=== PATIENT | male | born 1960 | race African-American/Black ===

== ENCOUNTER 2017-01-01 22:32 | Emergency (ER) | payer SELFPAY ==
[~2017-01-01] VITALS: Ht 175.3 cm; Wt 112.0 kg
[2017-01-01] MEDS: ALBUTEROL (0.083%) 2.5MG/3ML NEB HHN SCH ×2 (00:35→23:45)
[~2017-01-01 22:32] MED LIST: ALBU6.7H2
[2017-01-01] MEDS ORDERED: IPRATROPIUM BROMIDE (0.02%) 0.5MG/2.5ML NEB HHN STA (23:09)
[2017-01-01] MEDS ORDERED: METHYLPREDNISOLONE SOD SUCC 125 MG/2 ML VIAL IV STA (23:09)
[2017-01-01] MEDS ORDERED: MAGNESIUM 2 G PREMIX 50 ML IV ONE (23:15)
[2017-01-01] MEDS ORDERED: CEFTRIAXONE 1 G PREMIX 50 ML IV ONE (23:15)
[2017-01-01] MEDS ORDERED: ASPIRIN 81MG TABLET PO ONE (23:15)
[2017-01-01] MEDS ORDERED: AZITHROMYCIN 500 MG in DEXT 5% WATER 250 ML IV ONE (23:15)
[2017-01-01] MEDS ORDERED: NITROGLYCERIN OINT 1GM/INCH UDPKT TD ONE (23:15)
[2017-01-01 23:41] LABS: BASOPHILS % 0.6 % (0.0-2.0); EOSINOPHILS % 7.4 % (0.0-5.0); HEMATOCRIT. 44.2 % (42.0-52.0); HEMOGLOBIN. 14.6 g/dL (14.0-18.0); LYMPHOCYTES % 25.8 % (20.0-50.0); MEAN CORPUSCULAR HEMOGLOBIN 31.5 pg (28.0-32.0); MEAN CORPUSCULAR HGB CONC 33.1 g/dL (31.0-37.0); MEAN CORPUSCULAR VOLUME 95.2 fL (80.0-94.0); MEAN PLATELET VOLUME 8.9 fl (7.4-10.4); MONOCYTES % 8.4 % (2.0-8.0); NEUTROPHILS % 57.8 % (40.0-76.0); PLATELET 175 x1000/uL (130-400); RED BLOOD CELL COUNT 4.64 mill/uL (4.7-6.1); RED CELL DISTRIBUTION WIDTH 13.6 % (11.6-14.6); WHITE BLOOD COUNT 6.2 x1000/uL (4.5-11.0)
[2017-01-01 23:46] LABS: D-DIMER 0.19 mg/L FEU (<0.50); INR 1.1
[2017-01-01 23:56] LABS: ALANINE AMINOTRANSFERASE 24 IU/L (13-61); ANION GAP 12; CALCIUM 8.9 mg/dL (8.5-10.1); CARBON DIOXIDE 33 mEq/L (21-32); CHLORIDE 101 mEq/L (98-107); ETHANOL BLOOD < 10 mg/dL; INDEX HEMOLYSI 1 (1-3); INDEX ICTERIC 1 (1-4); INDEX LIPEMIC 1 (1-3); NT PRO B-TYPE NATRIURETIC PEP 106 pg/mL (5-125); TROPONIN I < 0.02 ng/mL (0.00-0.04); UREA NITROGEN BLOOD 13 mg/dL (7-21); eGFR > 60 mL/min (>60)
[2017-01-02] MEDS: ALBUTEROL (0.083%) 2.5MG/3ML NEB HHN SCH (00:15)
[2017-01-02 00:22] LABS: BG DEOXYHEMOGLOBIN 4.2 % (0.0-5.0); BG FRACTION INSPIRED OXYGEN 28; BG HCO3 ACT 29.3 mmol/L (22.0-26.0); BG METHEMOGLOBIN 0.4 % (0.0-1.5); BG OXYGEN SATURATION 95.8 % (92.0-98.5); BG OXYHEMOGLOBIN 95.4 % (94.0-97.0); BG PCO2 55.1 mmHg (35.0-45.0); BG PH 7.344 (7.350-7.450); BG PO2 86.5 mmHg (75.0-100.0); BG SAMPLE SITE RIGHT RADIAL; BG TOTAL HEMOGLOBIN 17.8 g/dL (12.0-18.0); BG VENT MODE NASAL CANNULA
[2017-01-02 03:42] VITALS: BP 140/98
== END 2017-01-02 03:44 | disposition left against medical advice (07) ==
LOC: ER 23:19
DX: R07.89 Other chest pain (principal); R06.02 Shortness of breath; I24.9 Acute ischemic heart disease, unspecified; I10 Essential (primary) hypertension; J45.909 Unspecified asthma, uncomplicated
CPT/HCPCS: 36415; 36600; 71010; 80053; 82375; 82805; 83605; 83880; 84484; 85025; 85379; 85610; 87040; 87804; 93005; 96365; 96366; 96368; 96375; 99291; G0482; J0456; J0696; J2930; J3475; J7611; Z7610; J7060

== ENCOUNTER 2017-01-07 15:05 | Emergency (ER) | payer SELFPAY ==
[~2017-01-07] VITALS: Ht 175.3 cm; Wt 82.0 kg
[2017-01-07] MEDS ORDERED: ALBUTEROL (0.083%) 2.5MG/3ML NEB HHN STA ×2 (15:25→19:20)
[2017-01-07] MEDS ORDERED: MAGNESIUM 2 G PREMIX 50 ML IV STA (15:25)
[2017-01-07] MEDS ORDERED: METHYLPREDNISOLONE SOD SUCC 125 MG/2 ML VIAL IV STA (15:25)
[2017-01-07] MEDS ORDERED: IPRATROPIUM BROMIDE (0.02%) 0.5MG/2.5ML NEB HHN STA ×2 (15:25→19:20)
[2017-01-07 15:53] LABS: EOSINOPHILS % 10.9 % (0.0-5.0); HEMATOCRIT. 41.1 % (42.0-52.0); HEMOGLOBIN. 13.7 g/dL (14.0-18.0); LYMPHOCYTES % 19.1 % (20.0-50.0); MEAN CORPUSCULAR HEMOGLOBIN 31.1 pg (28.0-32.0); MEAN CORPUSCULAR HGB CONC 33.3 g/dL (31.0-37.0); MEAN CORPUSCULAR VOLUME 93.5 fL (80.0-94.0); MONOCYTES % 6.4 % (2.0-8.0); NEUTROPHILS % 62.6 % (40.0-76.0); PLATELET 229 x1000/uL (130-400); RED CELL DISTRIBUTION WIDTH 13.7 % (11.6-14.6); WHITE BLOOD COUNT 7.2 x1000/uL (4.5-11.0)
[2017-01-07 16:01] LABS: ALANINE AMINOTRANSFERASE 19 IU/L (13-61); ALBUMIN 4.2 g/dL (3.4-5.0); ANION GAP 11; CALCIUM 9.4 mg/dL (8.5-10.1); CARBON DIOXIDE 30 mEq/L (21-32); CHLORIDE 103 mEq/L (98-107); INDEX HEMOLYSI 1 (1-3); INDEX ICTERIC 1 (1-4); INDEX LIPEMIC 1 (1-3); UREA NITROGEN BLOOD 15 mg/dL (7-21); eGFR > 60 mL/min (>60)
[2017-01-07] MEDS ORDERED: GUAIFENESIN 200MG/10ML SUGAR FREE UDC PO PRN (19:00)
[2017-01-07] MEDS ORDERED: ENOXAPARIN 40MG/0.4ML SYR SUBCUT SCH (19:00)
[2017-01-07] MEDS ORDERED: ONDANSETRON HCL 4MG/2ML VIAL IV PRN (19:00)
[2017-01-07] MEDS ORDERED: ACETAMINOPHEN 650MG SUPP PR PRN (19:00)
[2017-01-07] MEDS ORDERED: DIPHENHYDRAMINE 50MG/ML VIAL IV PRN (19:00)
[2017-01-07] MEDS ORDERED: ACETAMINOPHEN 325MG TABLET PO PRN (19:00)
[2017-01-07] MEDS ORDERED: METHYLPREDNISOLONE SOD SUCC 125 MG/2 ML VIAL IV SCH (19:00)
[2017-01-07] MEDS ORDERED: MAGNESIUM/ALUMINUM HYDROXIDE/SIMETHICONE 30ML UDC PO PRN (19:00)
[2017-01-07] MEDS ORDERED: ACETAMINOPHEN 650MG/20.3ML UDC GT PRN (19:00)
[2017-01-07] MEDS ORDERED: DOCUSATE SODIUM 100MG CAPSULE PO PRN (19:00)
[2017-01-07] MEDS ORDERED: HYDROCODONE/ACETAMINOPHEN 5/325MG TABLET PO PRN (19:00)
[2017-01-07] MEDS ORDERED: IPRATROPIUM/ALBUTEROL 0.5-3(2.5)MG/3ML NEB INH PRN (19:00)
[2017-01-07] MEDS ORDERED: NA PHOS,M-B/NA PHOS,DI-BA ENEMA 118ML PR PRN (19:00)
[2017-01-07] MEDS ORDERED: IPRATROPIUM/ALBUTEROL 0.5-3(2.5)MG/3ML NEB INH SCH (19:00)
[2017-01-07] MEDS ORDERED: CLONIDINE 0.1MG TABLET PO PRN (19:00)
[2017-01-07 21:34] VITALS: BP 156/97
[2017-01-07] MEDS ORDERED: SODIUM CHLORIDE 0.9% INJ 3ML FLUSH IVF SCH (22:00)
== END 2017-01-07 22:51 | disposition left against medical advice (07) ==
LOC: ER 15:05
DX: J45.902 Unspecified asthma with status asthmaticus (principal); I10 Essential (primary) hypertension
CPT/HCPCS: 36415; 71010; 80053; 85025; 96365; 96375; 99285; J2930; J3475; J7611; Z7610

== ENCOUNTER 2017-04-14 21:13 | Inpatient (IN) | payer SELFPAY ==
[~2017-04-14] VITALS: Ht 172.7 cm; Wt 94.8 kg
[2017-04-14] MEDS ORDERED: IPRATROPIUM BROMIDE (0.02%) 0.5MG/2.5ML NEB HHN STA (21:32)
[2017-04-14] MEDS ORDERED: METHYLPREDNISOLONE SOD SUCC 125 MG/2 ML VIAL IV STA (21:32)
[2017-04-14] MEDS ORDERED: ALBUTEROL (0.083%) 2.5MG/3ML NEB HHN STA (21:32)
[2017-04-14 22:06] LABS: BASOPHILS % 0.8 % (0.0-2.0); HEMATOCRIT. 44.2 % (42.0-52.0); HEMOGLOBIN. 14.5 g/dL (14.0-18.0); LYMPHOCYTES % 20.7 % (20.0-50.0); MEAN CORPUSCULAR HEMOGLOBIN 31.7 pg (28.0-32.0); MEAN CORPUSCULAR VOLUME 96.4 fL (80.0-94.0); MEAN PLATELET VOLUME 8.8 fl (7.4-10.4); NEUTROPHILS % 58.5 % (40.0-76.0); PLATELET 190 x1000/uL (130-400); RED BLOOD CELL COUNT 4.58 mill/uL (4.7-6.1)
[2017-04-14 22:10] LABS: PROTHROMBIN TIME 10.1 sec
[2017-04-14 22:15] LABS: CARBON DIOXIDE 28 mEq/L (21-32); CHLORIDE 106 mEq/L (98-107)
[2017-04-14 22:18] LABS: TROPONIN I < 0.02 ng/mL (0.00-0.04)
[2017-04-15] LABS: BG BASE EXCESS -6.3 mmol/L (-2.0-2.0); BG CARBOXYHEMOGLOBIN 0.5 % (0.5-1.5); BG DEOXYHEMOGLOBIN 7.2 % (0.0-5.0); BG FRACTION INSPIRED OXYGEN 21; BG HCO3 ACT 20.1 mmol/L (22.0-26.0); BG METHEMOGLOBIN 0.1 % (0.0-1.5); BG OXYGEN SATURATION 92.8 % (92.0-98.5); BG OXYHEMOGLOBIN 92.2 % (94.0-97.0); BG PH 7.287 (7.350-7.450); BG PO2 72.7 mmHg (75.0-100.0); BG SAMPLE SITE LEFT RADIAL; BG TOTAL HEMOGLOBIN 14.7 g/dL (12.0-18.0); BG VENT MODE ROOM AIR
[2017-04-15] MEDS ORDERED: ALBUTEROL (0.083%) 2.5MG/3ML NEB HHN STA (00:24)
[2017-04-15] MEDS ORDERED: SODIUM CHLORIDE 0.9% 1,000 ML IV NR (01:11)
[2017-04-15 04:30] VITALS: BP 162/110
[2017-04-15 08:23] VITALS: BP 149/105
[2017-04-15 11:55] VITALS: BP 161/112
[2017-04-15] MEDS ORDERED: SODIUM CHLORIDE 0.9% 10ML VIAL ONE (13:34)
[2017-04-15] MEDS ORDERED: IOHEXOL-300 100 ML BOTTLE ONE (13:34)
[2017-04-15] MEDS ORDERED: DIPHENHYDRAMINE 50MG/ML VIAL IV PRN (14:00)
[2017-04-15] MEDS ORDERED: GUAIFENESIN 200MG/10ML SUGAR FREE UDC PO PRN (14:00)
[2017-04-15] MEDS ORDERED: IPRATROPIUM/ALBUTEROL 0.5-3(2.5)MG/3ML NEB INH PRN (14:00)
[2017-04-15] MEDS ORDERED: ONDANSETRON HCL 4MG/2ML VIAL IV PRN (14:00)
[2017-04-15] MEDS ORDERED: CLONIDINE 0.1MG TABLET PO PRN (14:00)
[2017-04-15] MEDS: METHYLPREDNISOLONE SOD SUCC 125 MG/2 ML VIAL IV SCH ×3 (14:40→23:28)
[2017-04-15] MEDS ORDERED: LEVOFLOXACIN 500MG PREMIX 100 ML IV SCH (15:00)
[2017-04-15 16:06] VITALS: BP 161/115
[2017-04-15 16:19] VITALS: BP 153/83
[2017-04-15] MEDS: IPRATROPIUM/ALBUTEROL 0.5-3(2.5)MG/3ML NEB INH SCH ×2 (17:00→20:11)
[2017-04-15 20:00] VITALS: BP 159/109
[2017-04-16] VITALS: BP 150/98
[2017-04-16] MEDS: IPRATROPIUM/ALBUTEROL 0.5-3(2.5)MG/3ML NEB INH SCH ×2 (01:46→11:46)
[2017-04-16 04:00] VITALS: BP 125/92
[2017-04-16 05:11] LABS: CARBON DIOXIDE 30 mEq/L (21-32); CHLORIDE 101 mEq/L (98-107)
[2017-04-16 06:00] LABS: BASOPHILS % 0.3 % (0.0-2.0); HEMATOCRIT. 42.7 % (42.0-52.0); HEMOGLOBIN. 14.1 g/dL (14.0-18.0); LYMPHOCYTES % 10.5 % (20.0-50.0); MEAN CORPUSCULAR HEMOGLOBIN 31.3 pg (28.0-32.0); MEAN CORPUSCULAR VOLUME 94.9 fL (80.0-94.0); MEAN PLATELET VOLUME 9.6 fl (7.4-10.4); MONOCYTES % 2.4 % (2.0-8.0); NEUTROPHILS % 86.8 % (40.0-76.0); PLATELET 190 x1000/uL (130-400); RED CELL DISTRIBUTION WIDTH 13.7 % (11.6-14.6)
[2017-04-16] MEDS: METHYLPREDNISOLONE SOD SUCC 125 MG/2 ML VIAL IV SCH ×2 (06:06→12:28)
[2017-04-16 08:00] VITALS: BP 156/101
[2017-04-16] MEDS ORDERED: ASPIRIN 81MG EC TABLET PO SCH (09:00)
[2017-04-16 12:00] VITALS: BP 132/91
[2017-04-16 14:52] VITALS: BP 148/92
[2017-04-17] MEDS ORDERED: LEVOFLOXACIN 500MG TABLET PO SCH (11:00)
== END 2017-04-16 14:50 | disposition home or self-care (01) | DRG 141 ==
LOC: ER 21:13 → 5WST 04-15 00:25 → EDBEDREQ 04-15 00:29 → ENRESERV 04-15 02:29
PROVIDERS: ADMIT Hospitalist; ATTEND Hospitalist
DX: J45.901 Unspecified asthma with (acute) exacerbation (principal); J18.9 Pneumonia, unspecified organism; F17.210 Nicotine dependence, cigarettes, uncomplicated; Z60.2 Problems related to living alone
CPT/HCPCS: 36415; 36600; 71010; 71260; 80053; 82375; 82805; 83605; 83880; 84484; 85025; 85610; 87040; 93005; 94640; 96374; 99291; A4216; J1956; J2930; J7030; J7050; J7611; J7620; Q9967

== ENCOUNTER 2017-10-22 13:21 | Inpatient (IN) | payer SELFPAY ==
[~2017-10-22] VITALS: Ht 175.3 cm; Wt 74.4 kg
[~2017-10-22 13:21] MED LIST changes: -ALBU6.7H2; +ALBU6.7H3
[2017-10-22] MEDS ORDERED: IPRATROPIUM/ALBUTEROL 0.5-3(2.5)MG/3ML NEB HHN ONE (17:45)
[2017-10-22] MEDS ORDERED: METHYLPREDNISOLONE SOD SUCC 40 MG/ML VIAL IV ONE (17:45)
[2017-10-22 18:23] LABS: BASOPHILS % 0.4 % (0.0-2.0); EOSINOPHILS % 3.5 % (0.0-5.0); HEMATOCRIT. 45.4 % (42.0-52.0); HEMOGLOBIN. 14.6 g/dL (14.0-18.0); LYMPHOCYTES % 12.3 % (20.0-50.0); MEAN CORPUSCULAR VOLUME 96.3 fL (80.0-94.0); MEAN PLATELET VOLUME 8.7 fl (7.4-10.4); MONOCYTES % 9.9 % (2.0-8.0); NEUTROPHILS % 73.9 % (40.0-76.0); PLATELET 257 x1000/uL (130-400); RED BLOOD CELL COUNT 4.72 mill/uL (4.7-6.1); RED CELL DISTRIBUTION WIDTH 13.2 % (11.6-14.6)
[2017-10-22 18:32] LABS: CHLORIDE 104 mEq/L (98-107)
[2017-10-22 18:41] LABS: CARBON DIOXIDE 30 mEq/L (21-32)
[2017-10-22] MEDS ORDERED: SODIUM CHLORIDE 0.9% 500 ML IV ONE (20:00)
[2017-10-22] MEDS ORDERED: LEVOFLOXACIN 500MG PREMIX 100 ML IV ONE (20:30)
[2017-10-22 20:33] LABS: CLARITY URINE CLEAR (CLEAR); COLOR URINE YELLOW (YELLOW); KETONES URINE TRACE (NEGATIVE); LEUKOCYTE ESTERASE URINE NEGATIVE (NEGATIVE); NITRITE URINE NEGATIVE (NEGATIVE); OCCULT BLOOD URINE NEGATIVE (NEGATIVE); PROTEIN URINE TRACE (NEGATIVE); SPECIFIC GRAVITY URINE 1.025 (1.005-1.030); UROBILINOGEN URINE 0.2 E.U./dL (0.2-1.0)
[2017-10-22 21:57] LABS: *AMPHETAMINES SCREEN URINE NEGATIVE (NEGATIVE); *BARBITURATES SCREEN URINE NEGATIVE (NEGATIVE); *BENZODIAZEPINES SCREEN URINE NEGATIVE (NEGATIVE); *COCAINE SCREEN URINE NEGATIVE (NEGATIVE); CANNABINOID URINE SCREEN NEGATIVE (NEGATIVE); METHADONE URINE SCREEN NEGATIVE (NEGATIVE); OPIATES URINE SCREEN NEGATIVE (NEGATIVE); PHENCYCLIDINE URINE SCREEN NEGATIVE (NEGATIVE)
[2017-10-22 22:00] VITALS: BP 140/89
[2017-10-22] MEDS ORDERED: MAGNESIUM/ALUMINUM HYDROXIDE/SIMETHICONE 30ML UDC PO PRN (23:30)
[2017-10-22] MEDS ORDERED: ACETAMINOPHEN 325MG TABLET PO PRN (23:30)
[2017-10-22] MEDS ORDERED: CLONIDINE 0.1MG TABLET PO PRN (23:30)
[2017-10-22] MEDS ORDERED: LORAZEPAM 0.5MG TABLET PO PRN (23:30)
[2017-10-22] MEDS ORDERED: ONDANSETRON HCL 4MG/2ML VIAL IV PRN (23:30)
[2017-10-22] MEDS ORDERED: GUAIFENESIN 200MG/10ML SUGAR FREE UDC PO PRN (23:30)
[2017-10-23] VITALS: BP 120/66
[2017-10-23] MEDS: SODIUM CHLORIDE 0.9% 1,000 ML IV SCH ×2 (03:15→18:49)
[2017-10-23 04:00] VITALS: BP 122/71
[2017-10-23 06:48] LABS: BASOPHILS % 0.3 % (0.0-2.0); EOSINOPHILS % 0.1 % (0.0-5.0); HEMATOCRIT. 39.6 % (42.0-52.0); HEMOGLOBIN. 13.4 g/dL (14.0-18.0); LYMPHOCYTES % 13.5 % (20.0-50.0); MEAN CORPUSCULAR VOLUME 94.6 fL (80.0-94.0); MEAN PLATELET VOLUME 8.6 fl (7.4-10.4); MONOCYTES % 2.9 % (2.0-8.0); NEUTROPHILS % 83.2 % (40.0-76.0); PLATELET 263 x1000/uL (130-400); RED BLOOD CELL COUNT 4.18 mill/uL (4.7-6.1); RED CELL DISTRIBUTION WIDTH 13.2 % (11.6-14.6)
[2017-10-23 08:00] VITALS: BP 119/77
[2017-10-23 09:15] LABS: CARBON DIOXIDE 28 mEq/L (21-32); CHLORIDE 104 mEq/L (98-107)
[2017-10-23 12:00] VITALS: BP 132/84
[2017-10-23] MEDS: IPRATROPIUM/ALBUTEROL 0.5-3(2.5)MG/3ML NEB INH PRN (14:25)
[2017-10-23 16:00] VITALS: BP 120/75
[2017-10-23 20:00] VITALS: BP 122/73
[2017-10-24] VITALS: BP 129/83
[2017-10-24] MEDS: IPRATROPIUM/ALBUTEROL 0.5-3(2.5)MG/3ML NEB INH PRN ×2 (00:15→08:23)
[2017-10-24 04:00] VITALS: BP 117/56
[2017-10-24 08:00] VITALS: BP 131/96
[2017-10-24] MEDS ORDERED: METHYLPREDNISOLONE SOD SUCC 125 MG/2 ML VIAL IV STA (08:45)
[2017-10-24] MEDS ORDERED: METHYLPREDNISOLONE SOD SUCC 125 MG/2 ML VIAL IV SCH (09:00)
[2017-10-24] MEDS: GUAIFENESIN-DM 200MG-20MG/10ML UDC PO PRN ×2 (09:17→16:55)
[2017-10-24 09:38] LABS: BASOPHILS % 0.4 % (0.0-2.0); EOSINOPHILS % 2.5 % (0.0-5.0); HEMATOCRIT. 41.5 % (42.0-52.0); HEMOGLOBIN. 13.7 g/dL (14.0-18.0); LYMPHOCYTES % 22.1 % (20.0-50.0); MEAN CORPUSCULAR HEMOGLOBIN 31.5 pg (28.0-32.0); MEAN CORPUSCULAR VOLUME 95.3 fL (80.0-94.0); MEAN PLATELET VOLUME 8.7 fl (7.4-10.4); MONOCYTES % 10.7 % (2.0-8.0); NEUTROPHILS % 64.3 % (40.0-76.0); PLATELET 268 x1000/uL (130-400); RED BLOOD CELL COUNT 4.35 mill/uL (4.7-6.1); RED CELL DISTRIBUTION WIDTH 13.4 % (11.6-14.6)
[2017-10-24 10:18] LABS: CHLORIDE 103 mEq/L (98-107)
[2017-10-24 10:26] LABS: CARBON DIOXIDE 29 mEq/L (21-32)
[2017-10-24 12:00] VITALS: BP 135/92
[2017-10-24] MEDS ORDERED: POTASSIUM CHLORIDE 20MEQ TABLET SR PO SCH (12:00)
[2017-10-24] MEDS: IPRATROPIUM/ALBUTEROL 0.5-3(2.5)MG/3ML NEB HHN SCH ×2 (12:26→21:30)
[2017-10-24 16:00] VITALS: BP 131/85
[2017-10-24] MEDS ORDERED: MONTELUKAST SODIUM 10MG TABLET PO SCH ×2 (17:00→21:00)
[2017-10-24 20:00] VITALS: BP 148/84
[2017-10-24] MEDS: METHYLPREDNISOLONE SOD SUCC 125 MG/2 ML VIAL IV SCH (21:58)
[2017-10-25] VITALS: BP 137/71
[2017-10-25] MEDS: SODIUM CHLORIDE 0.9% 1,000 ML IV SCH (00:13)
[2017-10-25 04:00] VITALS: BP 114/80
[2017-10-25 06:29] LABS: BASOPHILS % 0.2 % (0.0-2.0); HEMATOCRIT. 40.7 % (42.0-52.0); HEMOGLOBIN. 13.4 g/dL (14.0-18.0); LYMPHOCYTES % 11.6 % (20.0-50.0); MEAN CORPUSCULAR HEMOGLOBIN 31.2 pg (28.0-32.0); MONOCYTES % 5.7 % (2.0-8.0); NEUTROPHILS % 82.5 % (40.0-76.0); PLATELET 282 x1000/uL (130-400); RED BLOOD CELL COUNT 4.29 mill/uL (4.7-6.1); RED CELL DISTRIBUTION WIDTH 13.1 % (11.6-14.6)
[2017-10-25 07:40] VITALS: BP 137/87
[2017-10-25] MEDS: IPRATROPIUM/ALBUTEROL 0.5-3(2.5)MG/3ML NEB HHN SCH ×2 (08:22→15:31)
[2017-10-25 08:30] LABS: CHLORIDE 102 mEq/L (98-107)
[2017-10-25] MEDS ORDERED: FLUTICASONE/VILANTEROL 200-25 BLST.W.DEV ORI SCH (09:00)
[2017-10-25] MEDS ORDERED: POTASSIUM CHLORIDE 20MEQ TABLET SR PO SCH (09:00)
[2017-10-25] MEDS: METHYLPREDNISOLONE SOD SUCC 125 MG/2 ML VIAL IV SCH (09:34)
[2017-10-25 10:14] LABS: CARBON DIOXIDE 25 mEq/L (21-32)
[2017-10-25 11:42] VITALS: BP 124/90
[2017-10-25 15:18] VITALS: BP 124/90
[2017-10-25 16:10] VITALS: BP 143/82
== END 2017-10-25 17:02 | disposition home or self-care (01) | DRG 140 ==
LOC: ER 13:24 → 5WST 20:16 → ENRESERV 20:40
PROVIDERS: ADMIT Internal Medicine Geriatric Medicine; ATTEND Internal Medicine Geriatric Medicine
DX: J44.1 Chronic obstructive pulmonary disease with (acute) exacerbation (principal); J96.90 Respiratory failure, unspecified, unspecified whether with hypoxia or hypercapnia; D64.9 Anemia, unspecified; I10 Essential (primary) hypertension; K59.00 Constipation, unspecified
CPT/HCPCS: 36415; 71045; 71250; 80048; 80053; 80305; 81001; 83036; 85025; 87040; 87086; 87804; 93005; 93970; 94640; 96374; 96375; 99285; J1956; J2920; J2930; J7030; J7040; J7620

== ENCOUNTER 2018-03-26 06:09 | Emergency (ER) | payer MEDICAID ==
[~2018-03-26] VITALS: Ht 180.3 cm; Wt 77.3 kg
[~2018-03-26 06:09] MED LIST changes: -ALBU6.7H3; +ALBU6.7H9
[2018-03-26] MEDS ORDERED: ALBUTEROL (0.083%) 2.5MG/3ML NEB HHN STA (06:48)
[2018-03-26] MEDS ORDERED: IPRATROPIUM BROMIDE (0.02%) 0.5MG/2.5ML NEB HHN STA (06:48)
[2018-03-26] MEDS ORDERED: PREDNISONE 20MG TABLET PO STA (06:48)
[2018-03-26 09:24] VITALS: BP 128/69
== END 2018-03-26 09:27 | disposition home or self-care (01) ==
LOC: ER 06:09
DX: J45.901 Unspecified asthma with (acute) exacerbation (principal); I10 Essential (primary) hypertension; Z87.891 Personal history of nicotine dependence
CPT/HCPCS: 71045; 94640; 99283; J7512; J7611; Z7610

== ENCOUNTER 2020-04-12 09:30 | Emergency (ER) | payer MEDICAID ==
[~2020-04-12] VITALS: Ht 172.7 cm; Wt 72.7 kg
[2020-04-12] MEDS ORDERED: ALBUTEROL (0.083%) 2.5MG/3ML NEB HHN ONE (11:45)
[2020-04-12] MEDS ORDERED: PREDNISONE 20MG TABLET PO ONE (11:45)
[2020-04-12 13:17] VITALS: BP 137/84
== END 2020-04-12 13:18 | disposition home or self-care (01) ==
LOC: ER 09:30
DX: J45.901 Unspecified asthma with (acute) exacerbation (principal); I10 Essential (primary) hypertension
CPT/HCPCS: 71045; 94640; 99283; J7512; Z7610

== ENCOUNTER 2022-08-23 12:24 | Inpatient (IN) | payer MEDICAID ==
[~2022-08-23] VITALS: Ht 182.9 cm; Wt 71.7 kg
[~2022-08-23 12:24] MED LIST changes: +ALBU6.7H3; -ALBU6.7H9
[2022-08-23] MEDS ORDERED: IBUPROFEN 600MG TABLET PO STA (12:53)
[2022-08-23] MEDS ORDERED: ACETAMINOPHEN 325MG TABLET PO STA (12:53)
[2022-08-23] MEDS ORDERED: AZITHROMYCIN 500MG/250ML 250 ML IV ONE (13:00)
[2022-08-23] MEDS ORDERED: SODIUM CHLORIDE 0.9% 1000ML BAG (SEPSIS BOLUS) IV ONE (13:00)
[2022-08-23] MEDS ORDERED: CEFTRIAXONE 1 G PREMIX 50 ML IV ONE (13:00)
[2022-08-23 13:33] LABS: HEMATOCRIT. 42.2 % (42.0-52.0); HEMOGLOBIN. 13.8 g/dL (14.0-18.0); MEAN CORPUSCULAR HEMOGLOBIN 32.6 pg (28.0-32.0); MEAN CORPUSCULAR VOLUME 99.7 fL (80.0-94.0); MEAN PLATELET VOLUME 9.2 fl (7.4-10.4); PLATELET 249 x1000/uL (130-400); RED BLOOD CELL COUNT 4.23 mill/uL (4.7-6.1); RED CELL DISTRIBUTION WIDTH 13.1 % (11.6-14.6)
[2022-08-23 13:41] LABS: CHLORIDE 100 mEq/L (98-107)
[2022-08-23 13:48] LABS: PROTHROMBIN TIME 11.1 sec (9.6-11.0)
[2022-08-23 14:06] LABS: PLATELET ESTIMATE NORMAL
[2022-08-23] MEDS ORDERED: CEFTRIAXONE 1 G PREMIX 50 ML IV NR (16:15)
[2022-08-23] MEDS ORDERED: AZITHROMYCIN 500MG/250ML 250 ML IV NR (16:15)
[2022-08-23 18:25] VITALS: BP 124/81
[2022-08-23 19:00] VITALS: BP 141/78
[2022-08-23 20:00] VITALS: BP 141/78
[2022-08-23] MEDS: ENOXAPARIN 40MG/0.4ML SYR SUBCUT SCH (20:57)
[2022-08-24] VITALS: BP 125/86
[2022-08-24 04:00] VITALS: BP 125/83
[2022-08-24 08:00] VITALS: BP 136/88
[2022-08-24] MEDS: IPRATROPIUM/ALBUTEROL 0.5-3(2.5)MG/3ML NEB HHN SCH ×4 (10:30→20:20)
[2022-08-24] MEDS ORDERED: ACETAMINOPHEN 650MG/20.3ML UDC PO PRN (11:00)
[2022-08-24] MEDS: AZITHROMYCIN 500MG in DEXTROSE 5% WATER 250ML IV SCH (11:37)
[2022-08-24] MEDS: CEFTRIAXONE 1,000 MG in DEXTROSE 5% WATER 50 ML IV SCH (11:38)
[2022-08-24 12:00] VITALS: BP 133/70
[2022-08-24] MEDS ORDERED: IPRATROPIUM/ALBUTEROL 0.5-3(2.5)MG/3ML NEB HHN PRN (12:15)
[2022-08-24] MEDS: METHYLPREDNISOLONE SOD SUCC 40 MG/ML VIAL IV SCH ×2 (12:15→21:25)
[2022-08-24 16:00] VITALS: BP 123/63
[2022-08-24 18:03] LABS: BASOPHILS % 0.4 % (0.0-2.0); EOSINOPHILS % 0.7 % (0.0-5.0); HEMATOCRIT. 36.3 % (42.0-52.0); HEMOGLOBIN. 12.3 g/dL (14.0-18.0); LYMPHOCYTES % 10.6 % (20.0-50.0); MEAN CORPUSCULAR HEMOGLOBIN 33.6 pg (28.0-32.0); MEAN CORPUSCULAR VOLUME 99.6 fL (80.0-94.0); MEAN PLATELET VOLUME 9.1 fl (7.4-10.4); MONOCYTES % 8.1 % (2.0-8.0); NEUTROPHILS % 80.2 % (40.0-76.0); PLATELET 257 x1000/uL (130-400); RED BLOOD CELL COUNT 3.65 mill/uL (4.7-6.1); RED CELL DISTRIBUTION WIDTH 12.7 % (11.6-14.6)
[2022-08-24 18:49] LABS: CHLORIDE 104 mEq/L (98-107)
[2022-08-24] MEDS: ENOXAPARIN 40MG/0.4ML SYR SUBCUT SCH (19:03)
[2022-08-24 20:00] VITALS: BP 122/84
[2022-08-25] VITALS: BP 139/80
[2022-08-25 04:00] VITALS: BP 125/87
[2022-08-25] MEDS: METHYLPREDNISOLONE SOD SUCC 40 MG/ML VIAL IV SCH ×2 (06:23→13:56)
[2022-08-25 07:26] LABS: MEAN CORPUSCULAR VOLUME 99.4 fL (80.0-94.0); MEAN PLATELET VOLUME 9.1 fl (7.4-10.4); PLATELET 309 x1000/uL (130-400); RED BLOOD CELL COUNT 3.93 mill/uL (4.7-6.1); RED CELL DISTRIBUTION WIDTH 12.9 % (11.6-14.6)
[2022-08-25] MEDS: AZITHROMYCIN 500MG in DEXTROSE 5% WATER 250ML IV SCH (07:59)
[2022-08-25 08:00] VITALS: BP 133/84
[2022-08-25 08:09] LABS: CHLORIDE 105 mEq/L (98-107)
[2022-08-25 08:26] LABS: CLARITY URINE CLEAR (CLEAR); COLOR URINE YELLOW (YELLOW); KETONES URINE NEGATIVE (NEGATIVE); LEUKOCYTE ESTERASE URINE 1+ (NEGATIVE); NITRITE URINE NEGATIVE (NEGATIVE); OCCULT BLOOD URINE NEGATIVE (NEGATIVE); PROTEIN URINE TRACE (NEGATIVE); SPECIFIC GRAVITY URINE 1.019 (1.005-1.030); UROBILINOGEN URINE 0.2 E.U./dL (0.2-1.0)
[2022-08-25] MEDS: CEFTRIAXONE 1,000 MG in DEXTROSE 5% WATER 50 ML IV SCH (09:06)
[2022-08-25 12:00] VITALS: BP 127/80
[2022-08-25] MEDS ORDERED: AZIT500T8 MT (13:38)
[2022-08-25] MEDS ORDERED: MED4 MT (13:38)
[2022-08-25] MEDS ORDERED: ALBU6.7H3 INH (13:38)
[2022-08-25 15:14] VITALS: BP 127/80
[2022-08-25 15:57] LABS: *AMPHETAMINES SCREEN URINE NEGATIVE (NEGATIVE); *BARBITURATES SCREEN URINE NEGATIVE (NEGATIVE); *BENZODIAZEPINES SCREEN URINE NEGATIVE (NEGATIVE); *COCAINE SCREEN URINE NEGATIVE (NEGATIVE); CANNABINOID URINE SCREEN NEGATIVE (NEGATIVE); METHADONE URINE SCREEN NEGATIVE (NEGATIVE); OPIATES URINE SCREEN NEGATIVE (NEGATIVE); PHENCYCLIDINE URINE SCREEN NEGATIVE (NEGATIVE)
[2022-08-26] MEDS ORDERED: AZITHROMYCIN 500 MG TABLET PO SCH (09:00)
[2022-08-27 07:10] LABS: PLATELET ESTIMATE NORMAL
== END 2022-08-25 15:40 | disposition home or self-care (01) | DRG 720 ==
LOC: ER 12:24 → 7WST 15:40 → EDBEDREQ 15:44 → EDBEDREQTM 15:44 → SUPCPDRO 15:58 → ENRESERV 16:22
PROVIDERS: ADMIT Internal Medicine; ATTEND Internal Medicine
DX: A41.9 Sepsis, unspecified organism (principal); J96.01 Acute respiratory failure with hypoxia; J45.41 Moderate persistent asthma with (acute) exacerbation; I10 Essential (primary) hypertension; Z20.822 Contact with and (suspected) exposure to COVID-19; Z87.891 Personal history of nicotine dependence; N39.0 Urinary tract infection, site not specified
CPT/HCPCS: 36415; 71045; 80048; 80053; 80305; 81003; 83605; 83880; 84145; 84484; 85025; 87426; 93005; 94640; 99291; J0456; J0696; J1650; J2920; J7030; J7060

== ENCOUNTER 2024-10-07 05:37 | Emergency (ER) | payer SELFPAY ==
[~2024-10-07] VITALS: Ht 175.3 cm; Wt 76.6 kg
[~2024-10-07 05:37] MED LIST changes: -ALBU6.7H3; +ALBU6.7H3 INH; +AZIT500T8 MT; +METH4TAB95 MT
[2024-10-07] MEDS ORDERED: IPRATROPIUM BROMIDE (0.02%) 0.5MG/2.5ML NEB HHN STA (05:53)
[2024-10-07] MEDS ORDERED: PREDNISONE 20MG TABLET PO STA (05:53)
[2024-10-07] MEDS ORDERED: ALBUTEROL (0.083%) 2.5MG/3ML NEB HHN STA (05:53)
[2024-10-07] MEDS: PREDNISONE 20MG TABLET PO NR (08:17)
[2024-10-07] MEDS: ALBUTEROL (0.083%) 2.5MG/3ML NEB HHN NR (08:21)
[2024-10-07] MEDS: IPRATROPIUM BROMIDE (0.02%) 0.5MG/2.5ML NEB HHN NR (08:21)
[2024-10-07] MEDS ORDERED: ALBU18HF2 IH (08:35)
[2024-10-07] MEDS ORDERED: P50 MT (08:35)
[2024-10-07 08:40] VITALS: PULSE 89; RESP 18; O2SAT 97
[2024-10-07] MEDS: ALBUTEROL (0.083%) 2.5MG/3ML NEB HHN ONE (09:25)
[2024-10-07 09:35] VITALS: PULSE 85; RESP 16; O2SAT 98
[2024-10-07 10:48] VITALS: BP 137/92; PULSE 93; RESP 15; TEMP 36.72516; O2SAT 99
== END 2024-10-07 10:51 | disposition home or self-care (01) ==
LOC: ER 06:06
DX: J44.1 Chronic obstructive pulmonary disease with (acute) exacerbation (principal); I10 Essential (primary) hypertension; F10.90 Alcohol use, unspecified, uncomplicated; F12.90 Cannabis use, unspecified, uncomplicated; Y90.9 Presence of alcohol in blood, level not specified
CPT/HCPCS: 94640; 99285; J7512; Z7610 ×3